=== PATIENT | male | born 1975 | race Caucasian/White ===

== ENCOUNTER 2017-02-25 16:54 | Emergency (ER) | payer MEDICARE, MEDICAID ==
[~2017-02-25] VITALS: Ht 180.3 cm; Wt 98.0 kg
[~2017-02-25 16:54] MED LIST: HYDR50CA PO; LEVO500T8 PO; LITH300T30 PO; PHEN100C PO; PROP20TA PO; QUET400T4 PO
[2017-02-25] MEDS ORDERED: SODIUM CHLORIDE FLUSH 10ML SYR IVF ONE (17:30)
[2017-02-25] MEDS ORDERED: LORazepam 2 MG/ML, 1ML IVPush ONE (17:30)
[2017-02-25 17:38] LABS: ASPARTATE AMINO TRANSFERASE 20 U/L (15-37); BLOOD UREA NITROGEN 27 mg/dL (7-18)
[2017-02-25] MEDS ORDERED: LORazepam 2 MG/ML, 1ML ONE (17:50)
[2017-02-25] MEDS ORDERED: PHENYTOIN 100 MG CAPSULE PO ONE (18:30)
[2017-02-25 18:59] VITALS: BP 103/57
== END 2017-02-25 19:09 | disposition home or self-care (01) ==
LOC: ED 19:03
DX: R56.9 Unspecified convulsions (principal); F17.200 Nicotine dependence, unspecified, uncomplicated; Z91.010 Allergy to peanuts
CPT/HCPCS: 36415; 80053; 80185; 83735; 84100; 85025; 93005; 96374; 99285; J2060

== ENCOUNTER 2017-05-08 15:55 | Emergency (ER) | payer MEDICARE, MEDICAID ==
[~2017-05-08] VITALS: Ht 180.3 cm; Wt 91.8 kg
[2017-05-08 16:37] LABS: DAU SCREEN DISCLAIMER
[2017-05-08 17:10] LABS: HEMATOCRIT 42.5 % (39.2-51.8); HEMOGLOBIN 14.6 g/dL (13.7-18.0); WHITE BLOOD COUNT 9.1 x10^3/uL (3.4-10)
[2017-05-08] MEDS ORDERED: KETOROLAC 30 MG/1 ML ONE (17:20)
[2017-05-08 17:23] LABS: ASPARTATE AMINO TRANSFERASE 29 U/L (15-37); BLOOD UREA NITROGEN 13 mg/dL (7-18)
[2017-05-08] MEDS ORDERED: KETOROLAC 60 MG/2 ML IM ONE (17:30)
[2017-05-08 17:32] LABS: ACETAMINOPHEN < 2 mcg/mL (10-30)
[2017-05-09 08:46] VITALS: BP 138/100
== END 2017-05-09 11:13 | disposition home or self-care (01) ==
LOC: ED 17:08
DX: F32.3 Major depressive disorder, single episode, severe with psychotic features (principal); R45.851 Suicidal ideations; F10.229 Alcohol dependence with intoxication, unspecified; Z86.73 Personal history of transient ischemic attack (TIA), and cerebral infarction without residual deficits
CPT/HCPCS: 36415; 74176; 80053; 80178; 80185; 80186; 80307; 80329; 81003; 83690; 85025; 96372; 99285; J1885; G0479; G0480

== ENCOUNTER 2017-09-26 15:43 | Emergency (ER) | payer MEDICARE, MEDICAID ==
[~2017-09-26] VITALS: Ht 180.3 cm; Wt 85.0 kg
[2017-09-26] MEDS ORDERED: LORazepam 2 MG/ML, 1ML ONE (16:17)
[2017-09-26] MEDS ORDERED: ALPR0.25 PO (16:20)
[2017-09-26] MEDS ORDERED: ZIPR20CA2 PO (16:20)
[2017-09-26] MEDS ORDERED: LORazepam 2 MG/ML, 1ML IVPush ONE (16:30)
[2017-09-26] MEDS ORDERED: THIAMINE 100 MG/ML, 2ML IM ONE (16:30)
[2017-09-26] MEDS ORDERED: DIAZEPAM 10 MG TABLET PO ONE (16:30)
[2017-09-26] MEDS ORDERED: PHENYTOIN SODIUM 1,000 MG in SODIUM CHLORIDE 0.9% 100 ML IV ONE (16:30)
[2017-09-26] MEDS ORDERED: DIAZEPAM 5 MG TABLET ONE (16:39)
[2017-09-26] MEDS ORDERED: THIAMINE 100MG TABLET ONE (16:39)
[2017-09-26 16:42] LABS: BASOPHILS # (AUTO) 0.03 x10^3/uL (0-0.1); BASOPHILS % (AUTO) 1 % (0-1); EOSINOPHILS # (AUTO) 0.23 x10^3/uL (0-0.4); EOSINOPHILS % (AUTO) 5 % (1-7); LYMPHOCYTES # (AUTO) 1.74 x10^3/uL (1-3.4); LYMPHOCYTES % (AUTO) 34 % (22-44); MD NO; MEAN CORPUSCULAR HEMOGLOBIN 31.9 pg (27.5-34.5); MEAN CORPUSCULAR VOLUME 93.7 fL (81-97); MONOCYTES # (AUTO) 0.28 x10^3/uL (0.2-0.8); MONOCYTES % (AUTO) 5 % (2-9); NEUTROPHILS # (AUTO) 2.83 x10^3/uL (1.8-6.8); NEUTROPHILS % (AUTO) 56 % (42-75); PLATELET COUNT 170 x10^3/uL (130-400); RED CELL DISTRIBUTION WIDTH 14.4 % (9.4-14.8)
[2017-09-26 16:56] LABS: ALBUMIN 3.4 g/dL (3.4-5.0); ANION GAP 6 mmol/L (5-15); CALCIUM 8.1 mg/dL (8.5-10.1); CHLORIDE 108 mmol/L (98-107); CREATININE 1.03 mg/dL (0.7-1.3)
[2017-09-26] MEDS ORDERED: FILTER 0.22 MICRON FOR PHENYTOIN IV PRN (17:00)
[2017-09-26] MEDS ORDERED: THIAMINE 100MG TABLET PO ONE (17:00)
[2017-09-26 17:02] VITALS: BP 144/103
== END 2017-09-26 18:34 ==
LOC: ED 18:15
DX: G40.319 Generalized idiopathic epilepsy and epileptic syndromes, intractable, without status epilepticus (principal); F10.220 Alcohol dependence with intoxication, uncomplicated; Z72.89 Other problems related to lifestyle; Z86.73 Personal history of transient ischemic attack (TIA), and cerebral infarction without residual deficits; I25.2 Old myocardial infarction; F17.200 Nicotine dependence, unspecified, uncomplicated
CPT/HCPCS: 36415; 70450; 80048; 80185; 80307; 82040; 85025; 96365; 99285; J1165

== ENCOUNTER 2018-11-24 23:31 | Emergency (ER) | payer MEDICARE, MEDICAID ==
[~2018-11-24] VITALS: Ht 180.3 cm; Wt 87.7 kg
[~2018-11-24 23:31] MED LIST changes: +ALPR0.25 PO; +DIVA500T2 PO; +GABA300C10 PO; +PROP40TA PO; +TRAZ-137 PO; +ZIPR20CA2 PO
--- NOTE | 2018-11-25 00:06 | NUR ---
42 Y/O MALE MACO REM FROM HOME. BYSTANDER AT HOME STATES HE HAD A SEIZURE LASTING APPROX 2 MIN. PT HAS A HX OF SEIZURE AND TAKES MEDICATIONS REGULARLY. EMS REPORT THE PT WAS ALERT AND ORIENTED UPON ARRIVAL AND HAS REMAINED ALERT AND ORIENTED THROUGHTOUT TRANSPORT. HE IS TALKING AND JOKING WITH STAFF UPON ARRIVAL. REPORTS DRINKING A PINT OF VODKA TODAY. HX OF ALCOHOLISM AND LIVER CIRRHOSIS. EMS ESTABLISHED IV, NO MEDS GIVEN. FSBS 125. ALL VITALS STABLE. MONITOR SHOWS NSR WITH NO ECTOPY NOTED. NO ST CHANGES PRESENT. SEIZURE PRECAUTIONS IN PLACE. CALL LIGHT WITHIN REACH. WILL CONTINUE TO MONITOR.
[2018-11-25 00:25] LABS: BASOPHILS # (AUTO) 0.03 x10^3/uL (0-0.1); BASOPHILS % (AUTO) 0 % (0-1); EOSINOPHILS % (AUTO) 3 % (1-7); LYMPHOCYTES # (AUTO) 2.85 x10^3/uL (1-3.4); LYMPHOCYTES % (AUTO) 41 % (22-44); MD NO; MEAN CORPUSCULAR HEMOGLOBIN 30.7 pg (27.5-34.5); MEAN CORPUSCULAR HGB CONC 33.4 g/dL (33.2-36.2); MEAN CORPUSCULAR VOLUME 91.8 fL (81-97); MEAN PLATELET VOLUME 7.6 fL (7.4-10.4); MONOCYTES % (AUTO) 13 % (2-9); NEUTROPHILS # (AUTO) 3.06 x10^3/uL (1.8-6.8); NEUTROPHILS % (AUTO) 44 % (42-75); PLATELET COUNT 186 x10^3/uL (130-400); RED CELL DISTRIBUTION WIDTH 16.5 % (9.4-14.8)
--- NOTE | 2018-11-25 00:27 | NUR ---
WALKED IN PT ROOM TO FIND HIM STANDING NEXT TO THE BED. PT STATES HE NEEDS TO GET SOMETHING TO EAT. PT EDUCATED ON THE NEED TO STAY IN BED SINCE HE HAD A SEIZURE AT HOME. HE WAS RE EDUCATED ON HOW TO USE THE CALL LIGHT WELL. URINAL PROVIDED TO OBTAIN A URINE SAMPLE. AWAITING TESTS AT THIS TIME. WILL CONTINUE TO MONITOR.
--- NOTE | 2018-11-25 00:35 | NUR ---
URINE SAMPLE PROVIDED BY PT. SENT TO LAB
[2018-11-25 00:37] LABS: ALANINE AMINOTRANSFERASE 32 U/L (12-78); ALBUMIN 3.3 g/dL (3.4-5.0); ANION GAP 6 mmol/L (5-15); CALCIUM 8.3 mg/dL (8.5-10.1); CHLORIDE 111 mmol/L (98-107); CREATININE 0.96 mg/dL (0.7-1.3)
[2018-11-25 00:39] LABS: ALKALINE PHOSPHATASE 82 U/L (45-117); BILIRUBIN,TOTAL 0.2 mg/dL (0.2-1.0); TOTAL PROTEIN 8.1 g/dL (6.4-8.2)
[2018-11-25 00:58] LABS: MICROSCOPIC NOT IND
[2018-11-25 01:02] LABS: CULTURE INDICATED? NO
--- NOTE | 2018-11-25 01:03 | NUR ---
PT RESTING ON GURNEY IN NAD. ALL VITALS STABLE. CHART UP FOR RECHECK
[2018-11-25 01:55] VITALS: BP 108/78
--- NOTE | 2018-11-25 01:55 | NUR ---
Break RN: patient discharge with instruction. verbalized understanding.
== END 2018-11-25 01:57 | disposition home or self-care (01) ==
LOC: ED 23:57
DX: G40.409 Other generalized epilepsy and epileptic syndromes, not intractable, without status epilepticus (principal); Z72.9 Problem related to lifestyle, unspecified; F31.9 Bipolar disorder, unspecified; Z86.73 Personal history of transient ischemic attack (TIA), and cerebral infarction without residual deficits; F20.9 Schizophrenia, unspecified; Z86.19 Personal history of other infectious and parasitic diseases; I25.2 Old myocardial infarction
CPT/HCPCS: 36415; 80053; 80164; 81003; 85025; 93005; 99284

== ENCOUNTER 2018-11-26 14:01 | Emergency (ER) | payer MEDICARE, MEDICAID ==
[~2018-11-26] VITALS: Ht 180.3 cm; Wt 100.0 kg
[2018-11-26 14:07] VITALS: BP 120/66
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
--- NOTE | 2018-11-26 15:02 | NUR ---
PT ON PHONE WITH ROOMMATE. SPOKE WITH ROOMMATE WHO SAID THAT HE CAN CALL FOR RIDE WHEN HE GETS DISCHARGED.
[2018-11-26] MEDS ORDERED: THIAMINE 100MG TABLET PO ONE (15:30)
--- NOTE | 2018-11-26 15:31 | NUR ---
FRIEND AT BEDSIDE. PT MOVED TO CHAIR TO TALK TO HIM. TO BE MEDICATED.
[2018-11-26] MEDS ORDERED: THIAMINE 100MG TABLET ONE (15:32)
--- NOTE | 2018-11-26 15:45 | NUR ---
AFTER GIVEN DISCHARGE PAPERS, PT AMBULATED TO DISCHARGE WITHOUT ASSISTANCE. FRIEND WITH HIM. PT A&O.
== END 2018-11-26 15:58 | disposition home or self-care (01) ==
LOC: ED 15:38
DX: F10.129 Alcohol abuse with intoxication, unspecified (principal); I25.2 Old myocardial infarction; F31.9 Bipolar disorder, unspecified; F17.200 Nicotine dependence, unspecified, uncomplicated; Z86.73 Personal history of transient ischemic attack (TIA), and cerebral infarction without residual deficits; Z90.89 Acquired absence of other organs
CPT/HCPCS: 99283

== ENCOUNTER 2018-12-20 16:41 | Inpatient (IN) | payer MEDICARE, MEDICAID ==
[~2018-12-20] VITALS: Ht 177.8 cm; Wt 93.0 kg
[2018-12-20] MEDS ORDERED: MAALOX/HYOSCYAMINE/LIDOCAINE 45 ML BTL ONE (17:12)
[2018-12-20] MEDS ORDERED: MAALOX/HYOSCYAMINE/LIDOCAINE 45 ML BTL PO ONE (17:30)
[2018-12-20] MEDS ORDERED: LIDOCAINE 4% CREAM 5GM TUBE TP ONE (17:30)
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
[2018-12-20 17:34] LABS: BASOPHILS # (AUTO) 0.15 x10^3/uL (0-0.1); BASOPHILS % (AUTO) 2 % (0-1); EOSINOPHILS # (AUTO) 0.49 x10^3/uL (0-0.4); EOSINOPHILS % (AUTO) 7 % (1-7); LYMPHOCYTES # (AUTO) 3.61 x10^3/uL (1-3.4); LYMPHOCYTES % (AUTO) 51 % (22-44); MD NO; MEAN CORPUSCULAR HEMOGLOBIN 31.6 pg (27.5-34.5); MEAN CORPUSCULAR HGB CONC 33.5 g/dL (33.2-36.2); MEAN CORPUSCULAR VOLUME 94.2 fL (81-97); MEAN PLATELET VOLUME 7.6 fL (7.4-10.4); MONOCYTES # (AUTO) 0.42 x10^3/uL (0.2-0.8); MONOCYTES % (AUTO) 6 % (2-9); NEUTROPHILS # (AUTO) 2.41 x10^3/uL (1.8-6.8); NEUTROPHILS % (AUTO) 34 % (42-75); PLATELET COUNT 340 x10^3/uL (130-400); RED BLOOD COUNT 5.04 x10^6/uL (4.38-5.82)
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
--- NOTE | 2018-12-20 17:45 | NUR ---
DR. VERNON AND THIS RN AT BEDSIDE FOR RECTAL EXAM. PT TO GET LIDOCAINE CREAM FOR PAIN.
[2018-12-20 17:47] LABS: ALBUMIN 3.4 g/dL (3.4-5.0); ANION GAP 8 mmol/L (5-15); CALCIUM 8.4 mg/dL (8.5-10.1); CHLORIDE 112 mmol/L (98-107)
[2018-12-20 17:53] LABS: ALANINE AMINOTRANSFERASE 43 U/L (12-78); ALKALINE PHOSPHATASE 93 U/L (45-117); TOTAL PROTEIN 8.7 g/dL (6.4-8.2)
[2018-12-20 17:55] LABS: ACETAMINOPHEN < 2 mcg/mL (10-30); BILIRUBIN,TOTAL < 0.1 mg/dL (0.2-1.0)
--- NOTE | 2018-12-20 18:30 | NUR ---
PT CALM AND COOPERATIVE WITH EX-BOYFRIEND AT BEDSIDE. WAITING FOR LAB RESULTS. PT AWARE OF NEED FOR UA SPECIMEN.
--- NOTE | 2018-12-20 19:45 | NUR ---
EX-BOYFRIEND LEFT AFTER HELPING PT BE REGISTERED. PT PLACED EX-BOYFRIEND PERSON TO NOTIFY ON REGISTRATION FORM. OK PER PT TO HAVE EX-BOYFRIEND BE CONTACTED IN CASE PT IS TRANSFERRED TO ANOTHER FACILITY. PT UPDATED ON POC REGARDING SOBRIETY THEN TELEPSYCH.
--- NOTE | 2018-12-20 20:42 | NUR ---
PT RESTING IN BED IN NAD. PT BEING OBSERVED BY SITTER. PT STILL AWARE OF NEED FOR UA SPECIMEN.
--- NOTE | 2018-12-20 22:02 | NUR ---
REPORT TO JAGDEEP Julien RN.
--- NOTE | 2018-12-20 22:36 | NUR ---
Note crystal in ED - 12/20/18 at 2353 by CHRISTOPHER PT PACING AROUND ROOM, TRYING TO RUN OUT OF ROOM. SITTER AT DOORWAY AND PT BACK INTO ROOM. PT MEDICATED FOR ANXIETY AND ASKED TO TRY TO RELAX. PT EASILY REDIRECTED AND RESTING IN BED AT THIS TIME.
--- NOTE | 2018-12-21 00:12 | NUR ---
PT SLEEPING ON RIGHT SIDE ON [facility], VSS AND SITTER AT DOORWAY. WILL CONT TO MONITOR.
--- NOTE | 2018-12-21 01:31 | NUR ---
PT AWAKE AND STATES THAT HE DOES NOT WANT TO HARM HIMSELF IN ANY WAY AND JUST WANTS TO GO TO REHAB AGAIN. ERMD DIGNA AWARE. BRETHALYZER 0.058
[2018-12-21] MEDS ORDERED: ONDANSETRON 2MG/ML, 2ML ONE (01:49)
--- NOTE | 2018-12-21 02:02 | NUR ---
TELEPSYCH EVAL INITIATED.
[2018-12-21 02:16] LABS: AMPHETAMINE SCREEN, URINE Negative (Negative); BARBITURATE SCREEN, URINE Negative (Negative); BENZODIAZEPINE SCREEN, URINE Negative (Negative); CANNABINOID SCREEN, URINE Negative (Negative); COCAINE SCREEN, URINE Negative (Negative); METHADONE SCREEN, URINE Negative (Negative); OPIATE SCREEN, URINE Negative (Negative)
--- NOTE | 2018-12-21 03:46 | NUR ---
PT RESTING WITH EYES CLOSED AWAITING TELEPSYCH CONSULT. SITTER AT DOORWAY AND WILL CONT TO MONITOR.
--- NOTE | 2018-12-21 04:50 | NUR ---
PT SLEEPING ON [place], SITTER AT DOORWAY. WILL CONT TO MONITOR.
--- NOTE | 2018-12-21 05:10 | NUR ---
Pt report from sascha saenz. This rn to assume care of pt. No immediate needs from pt. Roller doors in place. Sitter in hallway. Awaiting telepsych consult.
--- NOTE | 2018-12-21 05:46 | NUR ---
Soc updated on pt.
--- NOTE | 2018-12-21 06:16 | NUR ---
Pt to be placed on hold. Awaiting adm orders. Hospital bed ordered at this time.
--- NOTE | 2018-12-21 06:58 | NUR ---
Pt report to kathryn saenz.
--- NOTE | 2018-12-21 07:00 | NUR ---
REPORT RECEIVED, CARE ASSUMED.
--- NOTE | 2018-12-21 08:15 | NUR ---
PT AWAKE. PT WITH C/O "FEELING SHAKY" AND NAUSEATED. PT COOPERATIVE WITH CARE. PT PLACED ON BRAZER INDUCTION. PT DENIES SI AT THIS TIME. AWAITING FURTHER DISPOSITION.
[2018-12-21] MEDS ORDERED: THIAMINE 200 MG in DEXTROSE 5% 50 ML IVPB ONE (08:30)
[2018-12-21] MEDS ORDERED: LORazepam 0.5MG TABLET PO PRN (08:30)
[2018-12-21] MEDS ORDERED: LABETALOL 5MG/ML, 20ML IVPush PRN (08:30)
[2018-12-21] MEDS ORDERED: LORazepam 2 MG/ML, 1ML IV PRN ×4 (08:30)
[2018-12-21] MEDS ORDERED: ACETAMINOPHEN 325 MG TABLET PO PRN (08:30)
[2018-12-21] MEDS ORDERED: LORazepam 1MG TABLET PO PRN ×2 (08:30)
[2018-12-21] MEDS ORDERED: ONDANSETRON 2MG/ML, 2ML IVPush PRN (08:30)
--- NOTE | 2018-12-21 08:30 | NUR ---
DISCUSSED WITH PAUL YBARRA PT WITH C/O NAUSEA AND FEELING "SHAKY" AWAITING FURTHER ORDERS.
[2018-12-21] MEDS ORDERED: PANTOPRAZOLE 40 MG IV IVPush SCH (09:00)
[2018-12-21] MEDS ORDERED: NITROGLYCERIN 0.4 MG/SPRAY SL PRN (09:00)
[2018-12-21] MEDS ORDERED: MAALOX/HYOSCYAMINE/LIDOCAINE 45 ML BTL PO PRN (09:00)
[2018-12-21] MEDS ORDERED: NITROGLYCERIN 0.4 MG BOTTLE (25 TABS) SL PRN (09:00)
[2018-12-21 09:05] LABS: TROPONIN I < 0.015 ng/mL (0.000-0.045)
[2018-12-21] MEDS ORDERED: ONDANSETRON ODT 4 MG ONE (09:05)
[2018-12-21] MEDS ORDERED: PANTOPRAZOLE 40 MG IV ONE (09:05)
[2018-12-21] MEDS ORDERED: ENOXAPARIN 40 MG/0.4 ML ONE (09:05)
[2018-12-21] MEDS ORDERED: LORazepam 2 MG/ML, 1ML ONE ×2 (09:06→13:03)
--- NOTE | 2018-12-21 09:08 | NUR ---
MEDICATIONS REQUESTED FROM PHARMACY
[2018-12-21] MEDS: ONDANSETRON ODT 4 MG PO PRN (09:12)
[2018-12-21] MEDS: ENOXAPARIN 40 MG/0.4 ML SQ SCH (09:14)
[2018-12-21] MEDS: PROPRANOLOL 10 MG TABLET PO SCH (09:56)
--- NOTE | 2018-12-21 09:58 | NUR ---
Pt in stable condition, watching TV and denies needs. Pt has been medicated with Zofran and Librium, as well at Ativan per [facility]. Cooperative with care, sinus rhythm per monitor. Pt provided with snack, tolerating intake. Sitter at door.
[2018-12-21] MEDS: POTASSIUM CHLORIDE 20 MEQ, MAGNESIUM SULFATE 1 GM, THIAMINE 200 MG, FOLIC ACID 1 MG, MV... IV SCH (10:45)
[2018-12-21] MEDS ORDERED: CHLORDIAZEPOXIDE 10 MG CAPSULE PO SCH (11:00)
--- NOTE | 2018-12-21 11:58 | NUR ---
REPORT TO CAMI MICHAELS. POC DISCUSSED.
[2018-12-21 14:23] VITALS: BP 159/92
[2018-12-21 15:10] LABS: TROPONIN I < 0.015 ng/mL (0.000-0.045)
[2018-12-21] MEDS: PANTOPRAZOLE 20MG TABLET PO SCH (16:14)
[2018-12-21 19:46] VITALS: BP 153/100
[2018-12-21] MEDS ORDERED: LABETALOL 5 MG/ML SYRINGE IVPush PRN (20:00)
[2018-12-21 21:28] LABS: TROPONIN I < 0.015 ng/mL (0.000-0.045)
[2018-12-22 02:00] VITALS: BP 132/86
[2018-12-22] MEDS: PROPRANOLOL 10 MG TABLET PO SCH (05:39)
[2018-12-22] MEDS: PANTOPRAZOLE 20MG TABLET PO SCH ×2 (05:39→17:00)
[2018-12-22 07:05] VITALS: BP 151/86
[2018-12-22] MEDS: ONDANSETRON ODT 4 MG PO PRN (07:26)
[2018-12-22] MEDS: ENOXAPARIN 40 MG/0.4 ML SQ SCH (07:27)
[2018-12-22] MEDS: POTASSIUM CHLORIDE 20 MEQ, MAGNESIUM SULFATE 1 GM, THIAMINE 200 MG, FOLIC ACID 1 MG, MV... IV SCH (08:59)
[2018-12-22] MEDS ORDERED: LISINOPRIL 5 MG TABLET PO SCH (14:30)
[2018-12-22 15:59] VITALS: BP 126/89
[2018-12-22] MEDS ORDERED: FOLI-17 PO (16:15)
[2018-12-22] MEDS ORDERED: PANT20TA3 PO (16:15)
[2018-12-22] MEDS ORDERED: THIA100T67 PO (16:15)
[2018-12-23] MEDS ORDERED: THIAMINE 100MG TABLET PO SCH (09:00)
[2018-12-23] MEDS ORDERED: FOLIC ACID 1 MG TABLET PO SCH (09:00)
[2018-12-23] MEDS ORDERED: MULTIVITAMIN 1 TABLET PO SCH (09:00)
== END 2018-12-22 18:18 | DRG 392 ==
LOC: ED 18:55 → EDIP 12-21 06:39 → 4WST 12-21 13:35
PROVIDERS: ADMIT Internal Medicine; ATTEND Internal Medicine
DX: K29.20 Alcoholic gastritis without bleeding (principal); R45.851 Suicidal ideations; B15.9 Hepatitis A without hepatic coma; F10.220 Alcohol dependence with intoxication, uncomplicated; B18.2 Chronic viral hepatitis C; K70.30 Alcoholic cirrhosis of liver without ascites; F41.8 Other specified anxiety disorders; R07.89 Other chest pain; R25.1 Tremor, unspecified; R61 Generalized hyperhidrosis; F17.200 Nicotine dependence, unspecified, uncomplicated; F19.90 Other psychoactive substance use, unspecified, uncomplicated; F25.9 Schizoaffective disorder, unspecified; R56.9 Unspecified convulsions; F31.9 Bipolar disorder, unspecified; I10 Essential (primary) hypertension; I25.2 Old myocardial infarction; Z56.0 Unemployment, unspecified; Z90.49 Acquired absence of other specified parts of digestive tract; Z87.01 Personal history of pneumonia (recurrent); Z86.73 Personal history of transient ischemic attack (TIA), and cerebral infarction without residual deficits; Z88.6 Allergy status to analgesic agent; Z91.010 Allergy to peanuts; Z91.013 Allergy to seafood
CPT/HCPCS: 36415; 71045; 80053; 80307; 83690; 83735; 84100; 84484; 85025; 93005; 96365; 96375; G0378; J1650; J3411; J3475; J3480; Q0162; C9113; J2060; J7030

== ENCOUNTER 2018-12-22 16:55 | Inpatient (IN) | payer MEDICARE, MEDICAID ==
[~2018-12-22] VITALS: Ht 180.3 cm; Wt 91.9 kg
[~2018-12-22 16:55] MED LIST changes: +FOLI-17 PO; +PANT20TA3 PO; +THIA100T67 PO
[2018-12-22] MEDS ORDERED: POLYETHYLENE GLYCOL 17 GM PACKET PO PRN (18:00)
[2018-12-22] MEDS ORDERED: BISACODYL 10 MG SUPP PR PRN (18:00)
[2018-12-22] MEDS ORDERED: ONDANSETRON ODT 4 MG PO PRN (18:00)
[2018-12-22] MEDS ORDERED: DOCUSATE 100 MG CAPSULE PO PRN (18:00)
[2018-12-22] MEDS ORDERED: TRAZODONE 100MG TABLET PO PRN (19:00)
[2018-12-22] MEDS: PROPRANOLOL 40 MG TABLET PO SCH (19:00)
[2018-12-22 19:28] VITALS: BP 129/88
[2018-12-22] MEDS: DIVALPROEX 500 MG TABLET.DR PO SCH (20:09)
[2018-12-22] MEDS: GABAPENTIN 100 MG CAPSULE PO SCH (20:09)
[2018-12-22] MEDS ORDERED: QUETIAPINE 100MG TABLET PO SCH (21:00)
[2018-12-22 23:18] VITALS: BP 136/89
[2018-12-23 05:21] LABS: ANION GAP 9 mmol/L (5-15); CALCIUM 8.9 mg/dL (8.5-10.1); CHLORIDE 103 mmol/L (98-107); CHOLESTEROL, TOTAL 195 mg/dL (140-239); TRIGLYCERIDES 188 mg/dL (50-200); VLDL CHOLESTEROL 38 mg/dL (0-25)
[2018-12-23 05:47] LABS: FREE T4 (FREE THYROXINE) 1.11 ng/dL (0.76-1.46)
[2018-12-23] MEDS: PANTOPRAZOLE 20MG TABLET PO SCH (06:10)
[2018-12-23] MEDS: PROPRANOLOL 40 MG TABLET PO SCH (06:10)
[2018-12-23 06:24] LABS: CHOL/HDL RATIO 4.3; HDL CHOL % 23 % (26-37); HDL CHOLESTEROL (DIRECT) 45 mg/dL (40-60); LDL CHOLESTEROL,CALCULATED 112 mg/dL (54-169); LDL/HDL RATIO 2.5 (0.5-3.0)
[2018-12-23 07:10] VITALS: BP 75/36
[2018-12-23 07:25] VITALS: BP 82/44
[2018-12-23] MEDS ORDERED: SODIUM CHLORIDE 0.9%, 500ML IVBOLUS ONE (08:00)
[2018-12-23] MEDS: THIAMINE 100MG TABLET PO SCH (09:01)
[2018-12-23] MEDS: GABAPENTIN 100 MG CAPSULE PO SCH ×3 (09:01→20:44)
[2018-12-23] MEDS: FOLIC ACID 1 MG TABLET PO SCH (09:01)
[2018-12-23 09:25] VITALS: BP 86/56
[2018-12-23 10:23] VITALS: BP 94/60
[2018-12-23] MEDS ORDERED: TRAZODONE 100MG TABLET PO PRN (11:30)
[2018-12-23] MEDS ORDERED: SODIUM CHLORIDE 0.9% 1,000 ML IV SCH (11:30)
[2018-12-23 11:51] VITALS: BP 94/62
[2018-12-23] MEDS: ACETAMINOPHEN 325 MG TABLET PO PRN (12:58)
[2018-12-23 16:30] LABS: ALBUMIN 3.1 g/dL (3.4-5.0); ANION GAP 6 mmol/L (5-15); CALCIUM 8.8 mg/dL (8.5-10.1); CHLORIDE 107 mmol/L (98-107)
[2018-12-23 16:31] LABS: CREATININE 1.39 mg/dL (0.7-1.3)
[2018-12-23] MEDS: PROPRANOLOL 20 MG TABLET PO SCH (18:00)
[2018-12-23 20:17] VITALS: BP 118/81
[2018-12-23] MEDS: DIVALPROEX 500 MG TABLET.DR PO SCH (20:44)
[2018-12-23] MEDS: QUETIAPINE 100MG TABLET PO SCH (20:44)
[2018-12-24] VITALS (7 sets, daily range): BP systolic 100–155; BP diastolic 67–89
[2018-12-24] MEDS: PROPRANOLOL 20 MG TABLET PO SCH ×2 (06:00→17:10)
[2018-12-24] MEDS: PANTOPRAZOLE 20MG TABLET PO SCH (06:02)
[2018-12-24] MEDS: FOLIC ACID 1 MG TABLET PO SCH (08:33)
[2018-12-24] MEDS: THIAMINE 100MG TABLET PO SCH (08:33)
[2018-12-24] MEDS: GABAPENTIN 100 MG CAPSULE PO SCH ×3 (08:33→20:00)
[2018-12-24 15:27] LABS: MICROSCOPIC NOT IND
[2018-12-24 15:32] LABS: CULTURE INDICATED? NO
[2018-12-24] MEDS: DIVALPROEX 500 MG TABLET.DR PO SCH (20:00)
[2018-12-24] MEDS: QUETIAPINE 100MG TABLET PO SCH (20:00)
[2018-12-25] MEDS: PANTOPRAZOLE 20MG TABLET PO SCH (05:51)
[2018-12-25] MEDS: PROPRANOLOL 20 MG TABLET PO SCH ×2 (05:52→17:42)
[2018-12-25 06:39] LABS: CHLORIDE 107 mmol/L (98-107)
[2018-12-25 06:45] LABS: ALBUMIN 3.2 g/dL (3.4-5.0); ANION GAP 6 mmol/L (5-15); CALCIUM 8.8 mg/dL (8.5-10.1); CREATININE 0.87 mg/dL (0.7-1.3)
[2018-12-25 07:36] VITALS: BP 114/78
[2018-12-25] MEDS: THIAMINE 100MG TABLET PO SCH (09:18)
[2018-12-25] MEDS: GABAPENTIN 100 MG CAPSULE PO SCH ×3 (09:18→20:00)
[2018-12-25] MEDS: FOLIC ACID 1 MG TABLET PO SCH (09:18)
[2018-12-25] MEDS: ACETAMINOPHEN 325 MG TABLET PO PRN (16:09)
[2018-12-25 16:10] VITALS: BP 131/90
[2018-12-25 19:15] VITALS: BP 133/90
[2018-12-25] MEDS: DIVALPROEX 500 MG TABLET.DR PO SCH (20:00)
[2018-12-25] MEDS: QUETIAPINE 100MG TABLET PO SCH (20:01)
[2018-12-26] MEDS: PANTOPRAZOLE 20MG TABLET PO SCH (05:41)
[2018-12-26] MEDS: PROPRANOLOL 20 MG TABLET PO SCH ×2 (05:41→17:48)
[2018-12-26 07:10] VITALS: BP 130/85
[2018-12-26] MEDS: THIAMINE 100MG TABLET PO SCH (09:18)
[2018-12-26] MEDS: FOLIC ACID 1 MG TABLET PO SCH (09:18)
[2018-12-26] MEDS: GABAPENTIN 100 MG CAPSULE PO SCH ×3 (09:18→20:02)
[2018-12-26 17:47] VITALS: BP 130/86
[2018-12-26 19:21] VITALS: BP 127/93
[2018-12-26] MEDS: DIVALPROEX 500 MG TABLET.DR PO SCH (20:02)
[2018-12-26] MEDS: QUETIAPINE 100MG TABLET PO SCH (20:02)
[2018-12-27] MEDS: PROPRANOLOL 20 MG TABLET PO SCH (05:13)
[2018-12-27] MEDS: PANTOPRAZOLE 20MG TABLET PO SCH (05:13)
[2018-12-27 06:23] LABS: BASOPHILS # (AUTO) 0.03 x10^3/uL (0-0.1); BASOPHILS % (AUTO) 1 % (0-1); EOSINOPHILS # (AUTO) 0.43 x10^3/uL (0-0.4); EOSINOPHILS % (AUTO) 7 % (1-7); LYMPHOCYTES % (AUTO) 48 % (22-44); MD NO; MEAN CORPUSCULAR HEMOGLOBIN 32.2 pg (27.5-34.5); MEAN CORPUSCULAR HGB CONC 33.9 g/dL (33.2-36.2); MEAN CORPUSCULAR VOLUME 94.9 fL (81-97); MEAN PLATELET VOLUME 8.2 fL (7.4-10.4); MONOCYTES # (AUTO) 0.55 x10^3/uL (0.2-0.8); MONOCYTES % (AUTO) 9 % (2-9); NEUTROPHILS # (AUTO) 2.34 x10^3/uL (1.8-6.8); NEUTROPHILS % (AUTO) 36 % (42-75); PLATELET COUNT 204 x10^3/uL (130-400); RED CELL DISTRIBUTION WIDTH 14.6 % (9.4-14.8)
[2018-12-27 06:35] LABS: ALANINE AMINOTRANSFERASE 24 U/L (12-78); ALBUMIN 3.2 g/dL (3.4-5.0); ANION GAP 6 mmol/L (5-15); CALCIUM 8.8 mg/dL (8.5-10.1); CHLORIDE 109 mmol/L (98-107); CREATININE 1.03 mg/dL (0.7-1.3)
[2018-12-27 06:37] LABS: ALKALINE PHOSPHATASE 68 U/L (45-117); BILIRUBIN,TOTAL 0.3 mg/dL (0.2-1.0); TOTAL PROTEIN 7.6 g/dL (6.4-8.2)
[2018-12-27 07:00] VITALS: BP 125/88
[2018-12-27] MEDS: GABAPENTIN 100 MG CAPSULE PO SCH (08:51)
[2018-12-27] MEDS: THIAMINE 100MG TABLET PO SCH (08:51)
[2018-12-27] MEDS: FOLIC ACID 1 MG TABLET PO SCH (08:51)
== END 2018-12-27 11:45 | disposition home or self-care (01) | DRG 885 ==
LOC: 3E 18:17
PROVIDERS: ADMIT Psychiatry & Neurology Psychosomatic Medicine; ATTEND Psychiatry & Neurology Psychosomatic Medicine
DX: F25.0 Schizoaffective disorder, bipolar type (principal); N17.9 Acute kidney failure, unspecified; F10.20 Alcohol dependence, uncomplicated; F41.9 Anxiety disorder, unspecified; G89.29 Other chronic pain; F17.210 Nicotine dependence, cigarettes, uncomplicated; I10 Essential (primary) hypertension; K21.9 Gastro-esophageal reflux disease without esophagitis; F15.10 Other stimulant abuse, uncomplicated; Y90.9 Presence of alcohol in blood, level not specified; K74.60 Unspecified cirrhosis of liver; Z79.899 Other long term (current) drug therapy; Z88.5 Allergy status to narcotic agent; Z91.010 Allergy to peanuts; Z83.3 Family history of diabetes mellitus; Z88.8 Allergy status to other drugs, medicaments and biological substances; Z91.013 Allergy to seafood; Z90.49 Acquired absence of other specified parts of digestive tract
CPT/HCPCS: 36415; 80048; 80053; 80061; 80069; 81003; 82607; 84439; 84443; 85025; 86592; 86780; 92522-GN; J7030; J7040

== ENCOUNTER 2018-12-23 17:30 | Emergency (ER) | payer MEDICARE, MEDICAID ==
[~2018-12-23] VITALS: Ht 180.3 cm; Wt 93.0 kg
[2018-12-23] MEDS ORDERED: LIDOCAINE-MPF 1%, 5ML ONE (17:50)
[2018-12-23] MEDS ORDERED: L.E.T SOLUTION TP ONE ×2 (17:50→18:00)
[2018-12-23] MEDS ORDERED: PHENYLEPHRINE 10 MG/ML ONE (17:50)
[2018-12-23] MEDS ORDERED: PHENYLEPHRINE 10 MG/ML IC ONE (18:00)
[2018-12-23] MEDS ORDERED: PLEASE ENTER HEIGHT AND WEIGHT MC SCH (18:00)
[2018-12-23] MEDS ORDERED: LIDOCAINE 1%, 10ML INFIL ONE (18:00)
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
--- NOTE | 2018-12-23 19:10 | NUR ---
REPORT RECEIVED FROM WIN/CARLIN ALMANZA.
--- NOTE | 2018-12-23 19:14 | NUR ---
REPORT TO GIOVANI ALMANZA
--- NOTE | 2018-12-23 19:44 | NUR ---
REPORT GIVEN TO HOOD ALMANZA. ALL QUESTIONS ANSWERED.
[2018-12-23 19:46] VITALS: BP 133/72
== END 2018-12-23 20:00 ==
LOC: ED 17:35
DX: N48.33 Priapism, drug-induced (principal); I25.2 Old myocardial infarction; I10 Essential (primary) hypertension; F20.9 Schizophrenia, unspecified; F31.9 Bipolar disorder, unspecified; Z86.73 Personal history of transient ischemic attack (TIA), and cerebral infarction without residual deficits; Z90.49 Acquired absence of other specified parts of digestive tract
CPT/HCPCS: 99285

== ENCOUNTER 2019-01-12 23:57 | Emergency (ER) | payer MEDICARE, MEDICAID ==
[~2019-01-12] VITALS: Ht 175.3 cm; Wt 100.0 kg
[2019-01-13 00:05] VITALS: BP 141/97
== END 2019-01-13 01:19 | disposition home or self-care (01) ==
LOC: ED 01-13 00:10
DX: F10.120 Alcohol abuse with intoxication, uncomplicated (principal); I10 Essential (primary) hypertension; F20.9 Schizophrenia, unspecified; I25.2 Old myocardial infarction; F31.9 Bipolar disorder, unspecified; Z86.73 Personal history of transient ischemic attack (TIA), and cerebral infarction without residual deficits; Z90.89 Acquired absence of other organs
CPT/HCPCS: 99283

== ENCOUNTER 2019-07-14 07:19 | Emergency (ER) | payer MEDICAID, MEDICARE ==
[~2019-07-14] VITALS: Ht 180.3 cm; Wt 96.3 kg
[2019-07-14 07:21] VITALS: BP 135/98
--- NOTE | 2019-07-14 07:49 | NUR ---
FIRST CONTACT WITH PT. PT C/O LT ANKLE PAIN AFTER FALL LAST WK, HYPEREXTENDED, +LIMP, +DP PULSE/SWELLING. PT'S AOX4. RESPS EVEN AND UNLABORED. PA AT BEDSIDE TO EVALUATE AT THIS TIME.
[2019-07-14] MEDS ORDERED: OXYcodone 5 MG/5 ML ORAL.SOL UDC ONE (07:53)
[2019-07-14] MEDS ORDERED: OXYcodone 5 MG/5 ML ORAL.SOL UDC PO ONE (08:00)
--- NOTE | 2019-07-14 08:03 | NUR ---
PT MEDICATED PER EMAR FOR PAIN. PT TOLERATED WELL.
--- NOTE | 2019-07-14 08:48 | NUR ---
EMT AT BEDSIDE TO APPLY SPLINT AT THIS TIME.
--- NOTE | 2019-07-14 08:56 | NUR ---
Patient given discharge instructions and they have confirmed that they understand the instructions. Patient ambulatory with steady gait.
== END 2019-07-14 08:57 | disposition home or self-care (01) ==
LOC: ED 08:07
DX: S93.492A Sprain of other ligament of left ankle, initial encounter (principal); I25.2 Old myocardial infarction; I10 Essential (primary) hypertension; Z86.73 Personal history of transient ischemic attack (TIA), and cerebral infarction without residual deficits; X58.XXXA Exposure to other specified factors, initial encounter; Y93.89 Activity, other specified; Y92.098 Other place in other non-institutional residence as the place of occurrence of the external cause; Y99.8 Other external cause status
CPT/HCPCS: 99283

== ENCOUNTER 2020-01-04 15:54 | Emergency (ER) | payer MEDICARE, MEDICAID ==
[~2020-01-04] VITALS: Ht 180.3 cm; Wt 97.7 kg
[~2020-01-04 15:54] MED LIST changes: -TRAZ-137 PO; +TRAZ-175 PO
[2020-01-04 16:10] VITALS: BP 138/91
--- NOTE | 2020-01-04 16:31 | NUR ---
PT TO XRAY
--- NOTE | 2020-01-04 16:47 | NUR ---
PT YELLING INTO HALLWAY, RN ENTERED ROOM AND PT MAKING INNAPROPRIATE SEXUAL GESURES. PT STATES HE URINATED ON HIMSELF AND NEEDS RN TO CLEAN HIM UP. THIS RN ESCORTED BY MALE BENCH SHEAR OPERATOR DEMOND TO HELP, PT DID NOT URINATE ON HIMSELF PER DEMOND AND DID NOT NEED CLEANED UP. PT ON MONITOR WITH CALL LIGHT WITHIN REACH. PTS SISTER NOTIFIED HE IS HERE PER REQUEST.
== END 2020-01-04 17:48 | disposition home or self-care (01) ==
LOC: ED 16:47
DX: S93.491A Sprain of other ligament of right ankle, initial encounter (principal); S90.31XA Contusion of right foot, initial encounter; I10 Essential (primary) hypertension; F20.9 Schizophrenia, unspecified; I25.2 Old myocardial infarction; Z86.73 Personal history of transient ischemic attack (TIA), and cerebral infarction without residual deficits; Z90.89 Acquired absence of other organs; Z88.6 Allergy status to analgesic agent; X50.0XXA Overexertion from strenuous movement or load, initial encounter; Y93.89 Activity, other specified; Y92.410 Unspecified street and highway as the place of occurrence of the external cause; Y99.8 Other external cause status
CPT/HCPCS: 72050; 99284

== ENCOUNTER 2020-01-08 09:31 | Emergency (ER) | payer MEDICARE, MEDICAID ==
[~2020-01-08] VITALS: Ht 180.3 cm; Wt 89.3 kg
--- NOTE | 2020-01-08 09:48 | NUR ---
PT AMBULATORY TO ROOM 14 W/ C/O WOUNDS TO CHIN AND INSIDE LIPS STARTED 3 DAYS AGO. PT DENIES HX IMMUNOCOMPRIMISED. [facility] [place] Ana.
[2020-01-08 09:51] VITALS: BP 144/93
== END 2020-01-08 10:27 | disposition home or self-care (01) ==
LOC: ED 10:19
DX: L01.01 Non-bullous impetigo (principal)
CPT/HCPCS: 99283

== ENCOUNTER 2020-01-30 14:40 | Emergency (ER) | payer MEDICARE, MEDICAID ==
[~2020-01-30] VITALS: Ht 172.7 cm; Wt 86.0 kg
[2020-01-30 15:01] VITALS: BP 124/82
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
--- NOTE | 2020-01-30 15:09 | NUR ---
PER EMS, PT HAS ETOH ON BOARD. REPORT TO ALVAREZ ALMANZA, PLAN OF CARE DISCUSSED
--- NOTE | 2020-01-30 15:15 | NUR ---
REPORT FROM SELENE ALMANZA. MARISEL AT [facility].
[2020-01-30 15:44] LABS: BASOPHILS # (AUTO) 0.02 x10^3/uL (0-0.1); BASOPHILS % (AUTO) 0 % (0-1); EOSINOPHILS # (AUTO) 0.29 x10^3/uL (0-0.4); EOSINOPHILS % (AUTO) 3 % (1-7); LYMPHOCYTES # (AUTO) 3.79 x10^3/uL (1-3.4); LYMPHOCYTES % (AUTO) 41 % (22-44); MD NO; MEAN CORPUSCULAR HEMOGLOBIN 32.1 pg (27.5-34.5); MEAN CORPUSCULAR HGB CONC 33.5 g/dL (33.2-36.2); MEAN CORPUSCULAR VOLUME 95.6 fL (81-97); MEAN PLATELET VOLUME 8.3 fL (7.4-10.4); MONOCYTES # (AUTO) 0.58 x10^3/uL (0.2-0.8); MONOCYTES % (AUTO) 6 % (2-9); NEUTROPHILS # (AUTO) 4.55 x10^3/uL (1.8-6.8); NEUTROPHILS % (AUTO) 49 % (42-75); PLATELET COUNT 251 x10^3/uL (130-400); RED BLOOD COUNT 4.81 x10^6/uL (4.38-5.82); RED CELL DISTRIBUTION WIDTH 15.3 % (9.4-14.8)
[2020-01-30 15:56] LABS: ALANINE AMINOTRANSFERASE 54 U/L (12-78); ALBUMIN 3.4 g/dL (3.4-5.0); ANION GAP 4 mmol/L (5-15); CALCIUM 8.1 mg/dL (8.5-10.1); CHLORIDE 115 mmol/L (98-107); CREATININE 0.72 mg/dL (0.7-1.3)
[2020-01-30 15:58] LABS: ALKALINE PHOSPHATASE 89 U/L (45-117); BILIRUBIN,TOTAL 0.3 mg/dL (0.2-1.0); TOTAL PROTEIN 7.3 g/dL (6.4-8.2)
[2020-01-30 16:16] LABS: SALICYLATE LEVEL < 1.7 mg/dL (2.8-20.0)
--- NOTE | 2020-01-30 16:17 | NUR ---
PT SLEEPING, VSS, NAD. SITTER AT DOORWAY.
--- NOTE | 2020-01-30 18:17 | NUR ---
URINE COLLECTED/SENT TO LAB. PT STATING HE'S HUNGRY. ALSO ADMITS TO ETOH AND "ACTING STUPID". PT'S QUESTIONS ANSWERED, COOPERATIVE WITH CARE. AWAITING ORDERED MEAL TRAY.
[2020-01-30 18:43] LABS: AMPHETAMINE SCREEN, URINE Negative (Negative); BARBITURATE SCREEN, URINE Negative (Negative); BENZODIAZEPINE SCREEN, URINE Positive (Negative); CANNABINOID SCREEN, URINE Negative (Negative); COCAINE SCREEN, URINE Negative (Negative); METHADONE SCREEN, URINE Negative (Negative); OPIATE SCREEN, URINE Negative (Negative)
--- NOTE | 2020-01-30 19:14 | NUR ---
LIGHTS DIMMED PER PT REQUEST. PT RESTING, COOPERATIVE WITH CARE.
--- NOTE | 2020-01-30 19:51 | NUR ---
PT REBREATHALYZED 0.294. PT ABLE TO ANSWER QUESTIONS ABOUT HOME MEDS. MED REC COMPLETED. PULSE OX REPLACED, VSS.
--- NOTE | 2020-01-30 19:55 | NUR ---
CRACKERS, PUDDING, APPLESAUCE AND WATER PROVIDED. PT COOPERATIVE WITH CARE, SLEEPING INTERMITTENTLY. SITTER AT DOORWAY.
--- NOTE | 2020-01-30 21:01 | NUR ---
REPORT TO LOLIS RN, TRANSFER OF CARE AT THIS TIME.
--- NOTE | 2020-01-30 21:06 | NUR ---
REPORT FROM MARGARITA ALMANZA.
--- NOTE | 2020-01-30 22:28 | NUR ---
PT AWAKE, PROVIDED SNACKS. PT DENIES CURRENT SI. SAFETY ROOM PRECAUTIONS IN PLACE. SITTER AT DOORWAY FOR SAFETY.
--- NOTE | 2020-01-31 01:12 | NUR ---
AWAKE WATCHING TV. PROVIDED WATER. SAFETY ROOM PRECAUTIONS IN PLACE. SITTER MONITORING FOR SAFETY.
--- NOTE | 2020-01-31 03:50 | NUR ---
MT: PACKET FAXED TO [facility], [facility], [facility], AND [facility].
--- NOTE | 2020-01-31 04:11 | NUR ---
SLEEPING IN NAD. SITTER MONITORING AT DOORWAY.
--- NOTE | 2020-01-31 06:56 | NUR ---
REPORT GIVEN TO LAURYN ALMANZA.
--- NOTE | 2020-01-31 07:10 | NUR ---
TASK RN: REPORT GIVEN TO CAMI GRAY AT [facility] PT TO BE SENT BY EMS TO [facility] AT 0800.
--- NOTE | 2020-01-31 08:52 | NUR ---
PT RESTING ON HOSPITAL BED AT THIS TIME, PT GIVEN BREAKFAST TRAY. NO NEEDS EXPRESSED AT THIS TIME. SI PRECAUTIONS OBSERVED
--- NOTE | 2020-01-31 09:00 | NUR ---
REPORT TO CARLOS ALMANZA
[2020-01-31] MEDS ORDERED: METF500T17 PO (10:15)
[2020-01-31] MEDS ORDERED: DIVA-59 PO (10:18)
[2020-01-31] MEDS ORDERED: GABA100C PO (10:18)
[2020-01-31] MEDS ORDERED: PROP20TA PO (10:18)
[2020-01-31] MEDS ORDERED: QUET300T PO (10:18)
== END 2020-01-31 09:05 ==
LOC: ED 18:16
DX: F25.9 Schizoaffective disorder, unspecified (principal); F10.129 Alcohol abuse with intoxication, unspecified; I10 Essential (primary) hypertension; Y90.9 Presence of alcohol in blood, level not specified
CPT/HCPCS: 36415; 80053; 80307; 85025; 99285

== ENCOUNTER 2020-01-31 08:36 | Inpatient (IN) | payer MEDICARE, MEDICAID ==
[~2020-01-31] VITALS: Ht 180.3 cm; Wt 90.2 kg
[2020-01-31] MEDS ORDERED: BISACODYL 10 MG SUPP PR PRN (09:00)
[2020-01-31] MEDS ORDERED: DOCUSATE 100 MG CAPSULE PO PRN (09:00)
[2020-01-31] MEDS ORDERED: POLYETHYLENE GLYCOL 17 GM PACKET PO PRN (09:00)
[2020-01-31] MEDS ORDERED: ACETAMINOPHEN 325 MG TABLET PO PRN (09:00)
[2020-01-31] MEDS ORDERED: LORazepam 1MG TABLET ONE (09:46)
[2020-01-31] MEDS ORDERED: PROPRANOLOL 40 MG TABLET ONE (09:46)
[2020-01-31] MEDS: LORazepam 1MG TABLET PO SCH ×2 (09:53→14:23)
[2020-01-31] MEDS ORDERED: LORazepam 1MG TABLET PO SCH (10:00)
[2020-01-31] MEDS ORDERED: PROPRANOLOL 40 MG TABLET PO SCH (10:00)
[2020-01-31 10:01] VITALS: BP 155/104
[2020-01-31] MEDS ORDERED: METF500T17 PO (10:15)
[2020-01-31] MEDS ORDERED: GABA100C PO (10:18)
[2020-01-31] MEDS ORDERED: DIVA-59 PO (10:18)
[2020-01-31] MEDS ORDERED: PROP20TA PO (10:18)
[2020-01-31] MEDS ORDERED: QUET300T PO (10:18)
[2020-01-31] MEDS ORDERED: PLEASE ENTER HEIGHT AND WEIGHT MC SCH (10:30)
[2020-01-31 10:40] VITALS: BP 155/104
[2020-01-31 11:03] VITALS: BP 155/104
[2020-01-31 12:02] LABS: CHOL/HDL RATIO 2.9; FREE T4 (FREE THYROXINE) 0.87 ng/dL (0.76-1.46); LDL/HDL RATIO 1.6 (0.5-3.0)
[2020-01-31] MEDS: GABAPENTIN 100 MG CAPSULE PO SCH ×3 (15:24→20:34)
[2020-01-31] MEDS: DIAZEPAM 10 MG TABLET PO SCH ×3 (16:00→20:34)
[2020-01-31] MEDS: ONDANSETRON ODT 4 MG PO PRN (17:31)
[2020-01-31 19:57] VITALS: BP 135/92
[2020-01-31] MEDS: DIVALPROEX 500 MG TABLET.DR PO SCH (20:33)
[2020-01-31] MEDS: PROPRANOLOL 40 MG TABLET PO SCH (20:34)
[2020-01-31] MEDS: DIVALPROEX 250 MG TABLET.DR PO SCH (20:34)
[2020-01-31] MEDS: QUETIAPINE 200 MG TABLET PO SCH (20:34)
[2020-01-31] MEDS ORDERED: DIVALPROEX 500 MG TABLET.DR PO SCH ×2 (21:00)
[2020-01-31] MEDS ORDERED: QUETIAPINE 200 MG TABLET PO SCH (21:00)
[2020-02-01 06:54] LABS: ANION GAP 6 mmol/L (5-15); CHLORIDE 107 mmol/L (98-107)
[2020-02-01 06:57] LABS: ALANINE AMINOTRANSFERASE 39 U/L (12-78); ALKALINE PHOSPHATASE 87 U/L (45-117); BILIRUBIN,TOTAL 0.8 mg/dL (0.2-1.0); CREATININE 0.84 mg/dL (0.7-1.3); TOTAL PROTEIN 6.8 g/dL (6.4-8.2)
[2020-02-01 07:05] LABS: BASOPHILS # (AUTO) 0.05 x10^3/uL (0-0.1); BASOPHILS % (AUTO) 1 % (0-1); EOSINOPHILS # (AUTO) 0.46 x10^3/uL (0-0.4); EOSINOPHILS % (AUTO) 5 % (1-7); LYMPHOCYTES # (AUTO) 3.91 x10^3/uL (1-3.4); LYMPHOCYTES % (AUTO) 38 % (22-44); MD NO; MEAN CORPUSCULAR HEMOGLOBIN 31.9 pg (27.5-34.5); MEAN CORPUSCULAR HGB CONC 33.2 g/dL (33.2-36.2); MEAN CORPUSCULAR VOLUME 96.1 fL (81-97); MEAN PLATELET VOLUME 8.6 fL (7.4-10.4); MONOCYTES # (AUTO) 0.71 x10^3/uL (0.2-0.8); MONOCYTES % (AUTO) 7 % (2-9); NEUTROPHILS # (AUTO) 5.05 x10^3/uL (1.8-6.8); NEUTROPHILS % (AUTO) 50 % (42-75); PLATELET COUNT 195 x10^3/uL (130-400); RED BLOOD COUNT 4.89 x10^6/uL (4.38-5.82); RED CELL DISTRIBUTION WIDTH 15.1 % (9.4-14.8)
[2020-02-01 07:33] VITALS: BP 121/85
[2020-02-01] MEDS: DIVALPROEX 500 MG TABLET.DR PO SCH ×2 (08:11→20:22)
[2020-02-01] MEDS: DIVALPROEX 250 MG TABLET.DR PO SCH ×2 (08:11→20:22)
[2020-02-01] MEDS: GABAPENTIN 100 MG CAPSULE PO SCH ×3 (08:11→20:22)
[2020-02-01] MEDS: DIAZEPAM 10 MG TABLET PO SCH ×3 (08:11→20:23)
[2020-02-01] MEDS ORDERED: LORazepam 1MG TABLET PO SCH (10:00)
[2020-02-01 19:25] VITALS: BP 130/78
[2020-02-01] MEDS: PROPRANOLOL 40 MG TABLET PO SCH (20:23)
[2020-02-01] MEDS: QUETIAPINE 200 MG TABLET PO SCH (20:23)
[2020-02-02 07:43] VITALS: BP 115/74
[2020-02-02] MEDS: DIAZEPAM 10 MG TABLET PO SCH ×3 (08:38→20:03)
[2020-02-02] MEDS: DIVALPROEX 250 MG TABLET.DR PO SCH ×2 (08:38→20:03)
[2020-02-02] MEDS: GABAPENTIN 100 MG CAPSULE PO SCH ×3 (08:38→20:03)
[2020-02-02] MEDS: DIVALPROEX 500 MG TABLET.DR PO SCH ×2 (08:38→20:03)
[2020-02-02] MEDS: ONDANSETRON ODT 4 MG PO PRN (16:35)
[2020-02-02 19:27] VITALS: BP 130/85
[2020-02-02] MEDS: QUETIAPINE 200 MG TABLET PO SCH (20:03)
[2020-02-02] MEDS: PROPRANOLOL 40 MG TABLET PO SCH (20:04)
[2020-02-03 07:40] VITALS: BP 120/82
[2020-02-03] MEDS: DIVALPROEX 500 MG TABLET.DR PO SCH ×2 (08:51→20:21)
[2020-02-03] MEDS: GABAPENTIN 100 MG CAPSULE PO SCH ×3 (08:52→20:22)
[2020-02-03] MEDS: DIAZEPAM 10 MG TABLET PO SCH (08:52)
[2020-02-03] MEDS: DIVALPROEX 250 MG TABLET.DR PO SCH ×2 (08:52→20:21)
[2020-02-03] MEDS ORDERED: DIAZEPAM 10 MG TABLET PO PRN (13:30)
[2020-02-03 18:34] LABS: MICROSCOPIC NOT IND
[2020-02-03 19:41] VITALS: BP 134/96
[2020-02-03] MEDS: PROPRANOLOL 40 MG TABLET PO SCH (20:21)
[2020-02-03] MEDS: QUETIAPINE 200 MG TABLET PO SCH (20:22)
[2020-02-04 07:45] VITALS: BP 116/78
[2020-02-04] MEDS: DIVALPROEX 500 MG TABLET.DR PO SCH ×2 (08:37→20:53)
[2020-02-04] MEDS: DIVALPROEX 250 MG TABLET.DR PO SCH ×2 (08:37→20:52)
[2020-02-04] MEDS: GABAPENTIN 100 MG CAPSULE PO SCH ×3 (08:37→20:52)
[2020-02-04 19:13] VITALS: BP 148/90
[2020-02-04] MEDS: QUETIAPINE 200 MG TABLET PO SCH (20:52)
[2020-02-04] MEDS: PROPRANOLOL 40 MG TABLET PO SCH (20:53)
[2020-02-05 07:48] VITALS: BP 118/84
[2020-02-05] MEDS: GABAPENTIN 100 MG CAPSULE PO SCH (08:55)
[2020-02-05] MEDS: DIVALPROEX 250 MG TABLET.DR PO SCH (08:55)
[2020-02-05] MEDS: DIVALPROEX 500 MG TABLET.DR PO SCH (08:55)
== END 2020-02-05 09:10 | disposition home or self-care (01) | DRG 885 ==
LOC: 3E 09:31
PROVIDERS: ADMIT Psychiatry & Neurology Psychosomatic Medicine; ATTEND Hospitalist
DX: F25.0 Schizoaffective disorder, bipolar type (principal); R45.851 Suicidal ideations; F15.20 Other stimulant dependence, uncomplicated; F10.10 Alcohol abuse, uncomplicated; K75.89 Other specified inflammatory liver diseases; F17.210 Nicotine dependence, cigarettes, uncomplicated; G89.29 Other chronic pain; K74.60 Unspecified cirrhosis of liver; Z88.5 Allergy status to narcotic agent; Z91.013 Allergy to seafood; Z91.010 Allergy to peanuts; Z88.8 Allergy status to other drugs, medicaments and biological substances; Z90.49 Acquired absence of other specified parts of digestive tract
CPT/HCPCS: 36415; 71045; 80053; 80061; 81003; 82140; 83036; 84439; 84443; 85025; 93005; Q0162

== ENCOUNTER 2020-03-03 12:47 | Emergency (ER) | payer MEDICARE, MEDICAID ==
[~2020-03-03] VITALS: Ht 180.3 cm; Wt 91.5 kg
[~2020-03-03 12:47] MED LIST changes: +DIVA-59 PO; +GABA100C PO; +METF500T17 PO; +QUET300T PO
--- NOTE | 2020-03-03 12:59 | NUR ---
PT STATES HIS 14 YR OLD BROTHER RECENTLY OF COVID. STATES "I JUST WANT TO WITH HIM". PT ADMITS TO ETOH INTAKE TODAY: "1 PINT". DENIES SI PLAN. WANTS CLEARANCE TO GO TO [facility] OR [facility]. PSEUDO SEIZURE-LIKE ACTIVITY X 20 SECONDS DURING TRIAGE: PT ABLE TO MOVE EXTREMETIES, NO POST-ICTAL PERIOD, ABLE TO SPEAK W/OUT DIFFICULTY IMMEDIATELY AFTER EPISODE, RESP EVEN & UNLABORED.
[2020-03-03 13:49] LABS: BASOPHILS # (AUTO) 0.03 x10^3/uL (0-0.1); BASOPHILS % (AUTO) 0 % (0-1); EOSINOPHILS # (AUTO) 0.14 x10^3/uL (0-0.4); EOSINOPHILS % (AUTO) 2 % (1-7); LYMPHOCYTES % (AUTO) 38 % (22-44); MD NO; MEAN CORPUSCULAR HEMOGLOBIN 31.7 pg (27.5-34.5); MEAN CORPUSCULAR HGB CONC 33.8 g/dL (33.2-36.2); MEAN CORPUSCULAR VOLUME 93.8 fL (81-97); MEAN PLATELET VOLUME 7.6 fL (7.4-10.4); MONOCYTES % (AUTO) 7 % (2-9); NEUTROPHILS # (AUTO) 4.01 x10^3/uL (1.8-6.8); NEUTROPHILS % (AUTO) 53 % (42-75); PLATELET COUNT 278 x10^3/uL (130-400); RED BLOOD COUNT 4.95 x10^6/uL (4.38-5.82); RED CELL DISTRIBUTION WIDTH 14.4 % (9.4-14.8)
[2020-03-03] MEDS ORDERED: DIVA-61 PO (13:52)
[2020-03-03] MEDS ORDERED: QUET400T PO (13:52)
[2020-03-03 13:55] VITALS: BP 126/90
--- NOTE | 2020-03-03 13:55 | NUR ---
PERSONAL BELONGINGS BAGGED, WILL BE PLACED IN ED LOCKER. PT'S [address] IN SHORTS POCKET[address] RX BOTTLES PLACED IN BAG.
[2020-03-03 13:57] LABS: ALBUMIN 3.5 g/dL (3.4-5.0); ANION GAP 13 mmol/L (5-15); CALCIUM 8.1 mg/dL (8.5-10.1); CHLORIDE 109 mmol/L (98-107)
[2020-03-03 13:59] LABS: SALICYLATE LEVEL < 1.7 mg/dL (2.8-20.0)
[2020-03-03 14:04] LABS: CREATININE 0.85 mg/dL (0.7-1.3)
--- NOTE | 2020-03-03 14:22 | NUR ---
PT REPORT TO CAMI MATUTE. PT CARE TRANSFERRED. PT MOVED TO ROOM 2
--- NOTE | 2020-03-03 14:28 | NUR ---
REPORT RECEIVED FROM MUKUL ALMANZA.
[2020-03-03 14:38] LABS: AMPHETAMINE SCREEN, URINE Negative (Negative); BARBITURATE SCREEN, URINE Negative (Negative); BENZODIAZEPINE SCREEN, URINE Positive (Negative); CANNABINOID SCREEN, URINE Negative (Negative); COCAINE SCREEN, URINE Negative (Negative); METHADONE SCREEN, URINE Negative (Negative); OPIATE SCREEN, URINE Negative (Negative)
--- NOTE | 2020-03-03 15:07 | NUR ---
INTEGRITY CONSULTANT AT BEDSIDE TO EVALUATE AT THIS TIME.
--- NOTE | 2020-03-03 16:03 | NUR ---
PT SLEEPING IN [facility]. RESPS EVEN AND UNLABORED. SITTER MONITORING FROM HALLWAY FOR SAFETY. ROOM REMAINS SECURE.
--- NOTE | 2020-03-03 16:57 | NUR ---
THIS RN CALLED FOR REPORT BUT RN IS IN BREAK AT THIS TIME. WILL CALL BACK SOON.
--- NOTE | 2020-03-03 17:05 | NUR ---
ICE CHIPS AND ORANGE JUICE PROVIDED PER REQUEST.
--- NOTE | 2020-03-03 17:20 | NUR ---
REPORT GIVEN TO Kortney ALMANZA. ALL QUESTIONS ANSWERED.
== END 2020-03-03 18:57 ==
LOC: ED 16:15
DX: R45.851 Suicidal ideations (principal); F10.120 Alcohol abuse with intoxication, uncomplicated; Y90.9 Presence of alcohol in blood, level not specified; I10 Essential (primary) hypertension; I25.2 Old myocardial infarction; Z86.73 Personal history of transient ischemic attack (TIA), and cerebral infarction without residual deficits
CPT/HCPCS: 36415; 80048; 80164; 80307; 82040; 82140; 85025; 99283

== ENCOUNTER 2020-07-13 07:57 | Emergency (ER) | payer MEDICARE, MEDICAID ==
[~2020-07-13] VITALS: Ht 180.3 cm; Wt 91.0 kg
[~2020-07-13 07:57] MED LIST changes: +DIVA-61 PO; +GABA-826 PO; +METF500T PO; +MULT-449 PO; -PANT20TA3 PO; +PANT20TA4 PO; +QUET100T PO; +QUET400T PO
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
--- NOTE | 2020-07-13 08:16 | NUR ---
EXPECTATIONS AND BOUNDARIES SET W/ PT. EDUCATED THAT PHYSICAL AGGRESSION IS UNACCEPTABLE BEHAVIOR. VERBALIZED UNDERSTANDING, COOPERATIVE DURING REST OF ASSESSMENT.
--- NOTE | 2020-07-13 08:16 | NUR ---
PT PROVIDED W/ URINAL AND EDUCATED ON NEED FOR SAMPLE.
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
--- NOTE | 2020-07-13 08:31 | NUR ---
PT REMINDED NEED FOR URINE SAMPLE, STATES HE HAS TRIED BUT HAS NOT BEEN ABLE TO PRODUCE URINE.
[2020-07-13 08:44] LABS: BASOPHILS % (AUTO) 1 % (0-1); EOSINOPHILS % (AUTO) 5 % (1-7); LYMPHOCYTES % (AUTO) 32 % (22-44); MEAN CORPUSCULAR HEMOGLOBIN 31.4 pg (27.5-34.5); MEAN CORPUSCULAR HGB CONC 34.6 g/dL (33.2-36.2); MEAN PLATELET VOLUME 7.4 fL (7.4-10.4); MONOCYTES % (AUTO) 10 % (2-9); NEUTROPHILS % (AUTO) 53 % (42-75); PLATELET COUNT 211 x10^3/uL (130-400); RED BLOOD COUNT 5.16 x10^6/uL (4.38-5.82); RED CELL DISTRIBUTION WIDTH 14.8 % (9.4-14.8)
[2020-07-13 08:46] LABS: MD NO
[2020-07-13 08:56] LABS: ALANINE AMINOTRANSFERASE 67 U/L (12-78); ALBUMIN 3.4 g/dL (3.4-5.0); ANION GAP 9 mmol/L (5-15); CALCIUM 8.3 mg/dL (8.5-10.1); CHLORIDE 104 mmol/L (98-107); CREATININE 0.99 mg/dL (0.7-1.3)
[2020-07-13 08:58] LABS: ALKALINE PHOSPHATASE 111 U/L (45-117); BILIRUBIN,TOTAL 0.5 mg/dL (0.2-1.0); TOTAL PROTEIN 7.8 g/dL (6.4-8.2)
[2020-07-13 09:01] LABS: SALICYLATE LEVEL < 1.7 mg/dL (2.8-20.0)
--- NOTE | 2020-07-13 09:04 | NUR ---
PT SLEEPING ON GURNEY W/ SIDE RAILS UPX2, GARAGE DOORS DOWN FOR SAFETY. RESP EVEN AND UNLABORED, RENETTA.
--- NOTE | 2020-07-13 09:10 | NUR ---
SITTER AT BEDSIDE FOR SAFETY.
--- NOTE | 2020-07-13 09:17 | NUR ---
PT ATTEMPTED TO USE URINAL W/O SUCCESS.
--- NOTE | 2020-07-13 10:12 | NUR ---
URINE SENT TO LAB
[2020-07-13 10:21] LABS: MICROSCOPIC NOT IND
[2020-07-13 10:34] LABS: AMPHETAMINE SCREEN, URINE Negative (Negative); BARBITURATE SCREEN, URINE Negative (Negative); BENZODIAZEPINE SCREEN, URINE Negative (Negative); CANNABINOID SCREEN, URINE Negative (Negative); COCAINE SCREEN, URINE Negative (Negative); METHADONE SCREEN, URINE Negative (Negative); OPIATE SCREEN, URINE Negative (Negative)
--- NOTE | 2020-07-13 11:03 | NUR ---
DIET TRAY DELIVERED.
--- NOTE | 2020-07-13 12:45 | NUR ---
PT RESTING ON GURNEY WITH EYES CLOSED, RESPONDS APPROP TO STAFF, NAD, COMFORT MEASURES PROVIDED, PT REMAINS IN SAFE ENVIRONMENT, SITTER IN VIEW.
--- NOTE | 2020-07-13 13:45 | NUR ---
PT RESTING ON [employer] W/ CALL LIGHT IN REACH, RESP EVEN AND UNLABORED, RENETTA.
--- NOTE | 2020-07-13 14:20 | NUR ---
LUNCH TRAY DELIVERED.
--- NOTE | 2020-07-13 15:26 | NUR ---
PT RESTING ON GURNEY W/ GARAGE DOORS DOWN AND SITTER OUTSIDE FOR SAFETY. RESP EVEN AND UNLABORED, RENETTA.
[2020-07-13] MEDS ORDERED: PROMETHAZINE 25 MG/ML, 1ML ONE ×2 (15:36→21:04)
--- NOTE | 2020-07-13 15:42 | NUR ---
PT NOW HAS C/O N/V, BODYACHES. PT VOMITTED 200ML. PT STATES HE HAS BEEN DRINKING NON STOP X2 DAYS. DR.VAN WEINER UPDATED. PT MEDICATED PER EMAR. PT PROVIDED W/ NEW EMESIS BAG AND WARM BLANKET, LIGHTS OFF PER PT REQUEST. SITTER OUTSIDE ROOM FOR SAFETY. RESP EVEN AND UNLABORED, NADJesus.
[2020-07-13] MEDS ORDERED: PROMETHAZINE 25 MG/ML, 1ML IM ONE ×2 (16:00→21:30)
--- NOTE | 2020-07-13 16:30 | NUR ---
PT HAS BEEN SLEEPING ON [facility] SINCE CHIEF VENDOR QUALITY. RESP EVEN AND UNLABORED, NADN. SITTER OUTSIDE ROOM AND GARAGE DOORS DOWN FOR SAFETY.
--- NOTE | 2020-07-13 18:57 | NUR ---
REPORT GIVEN TO SAM ALMANZA. PT C/O NAUSEA, WILL UPDATE ERP. PT ACCEPTED TO [facility] ONCE [facility], ED TO EVAL PRIOR TO TRANSFER. RESP EVEN AND UNLABORED, RENETTA.
--- NOTE | 2020-07-13 18:58 | NUR ---
Report received from CAMI Abdullahi. This RN to assume care.
[2020-07-13] MEDS ORDERED: POTASSIUM CHLORIDE 20 MEQ PACKET PO SCH (20:00)
--- NOTE | 2020-07-13 20:15 | NUR ---
Report given to CAMI Skaggs from [facility]. They are to accept patient and take him at 2200.
[2020-07-13] MEDS ORDERED: POTASSIUM CHLORIDE 20 MEQ TAB.ER.PRT ONE (20:22)
[2020-07-13] MEDS ORDERED: ONDANSETRON ODT 8 MG ONE (20:26)
[2020-07-13] MEDS ORDERED: ONDANSETRON ODT 8 MG PO ONE (20:30)
--- NOTE | 2020-07-13 20:30 | NUR ---
CAMI Skaggs at bedside. Patient c/o nausea. Medicated patient per sep.
--- NOTE | 2020-07-13 21:11 | NUR ---
Patient remains nauseous; dry heaving. Medicated patient per mar. Rapid COVID swab collected and walked to lab.
--- NOTE | 2020-07-13 21:44 | NUR ---
Patient COVID result +. [facility] unable to accept COVID+ patients at this time. Throughput advised. No facilities available to accept patient at this time.
--- NOTE | 2020-07-13 21:52 | NUR ---
Patient feeling better after last meds given. Patient informed of COVID+ result. Advised patient he will not be transferred to U. Home meds given to ERP to be ordered as scheduled. Patient has no complaints/needs at this time. Room secured, belongings in locked cabinet, sitter outside.
[2020-07-13] MEDS: QUETIAPINE 100MG TABLET PO SCH (22:00)
[2020-07-13] MEDS: DIVALPROEX 500 MG TABLET.DR PO SCH (22:00)
[2020-07-13] MEDS: metFORMIN 500 MG TABLET PO SCH (22:00)
[2020-07-13] MEDS ORDERED: GABAPENTIN 300 MG CAPSULE PO ONE (22:00)
[2020-07-13] MEDS ORDERED: QUETIAPINE 100MG TABLET ONE (22:04)
[2020-07-13] MEDS ORDERED: DIVALPROEX 500 MG TAB.ER.24H ONE (22:04)
[2020-07-13] MEDS ORDERED: metFORMIN 500 MG TABLET ONE (22:04)
--- NOTE | 2020-07-13 22:06 | NUR ---
Meds requested. Hospital bed requested.
--- NOTE | 2020-07-13 22:18 | NUR ---
TP RN: PT. UNABLE TO TO GO OUR U UNIT COVID TEST CAME BACK +. CALLED TO [facility]-THEY DON'T CURRENTLY ACCEPT COVID + PATIENTS. [facility] STATES THEY DO TAKE COIVD + BUT THEIR UNIT IS FULL AT THIS TIME. PACKET WAS STILL FAXED TO ALL FACILITIES.
[2020-07-13] MEDS ORDERED: GABAPENTIN 100 MG CAPSULE PO ONE (22:30)
--- NOTE | 2020-07-13 22:35 | NUR ---
Medicated patient per sep. Transferred patient to hospital bed.
--- NOTE | 2020-07-13 23:29 | NUR ---
Patient sleeping in hospital bed. Respirations even and unlabored. Room secured, belongings in locked cabinet. Sitter outside.
--- NOTE | 2020-07-14 00:23 | NUR ---
Patient sleeping in hospital bed. Respirations even and unlabored. Room secured, belongings in locked cabinet. Sitter outside.
--- NOTE | 2020-07-14 01:10 | NUR ---
RECEIVED REPORT FROM CAMI HINES TO ASSUME CARE OF PT. AT THIS TIME. PT. CURRENTLY RESTING ON HOSPITAL BED WITH EYES CLOSED. EVEN, NON-LABORED RESPIRATIONS VISIBLE. NO DISTRESS NOTED. ALL SAFETY MEASURES OBSERVED. ROOM SECURED AND SITTER IN [place].
--- NOTE | 2020-07-14 01:11 | NUR ---
Patient sleeping in hospital bed. Respirations even and unlabored. Room secured, belongings in locked cabinet. Sitter outside.
--- NOTE | 2020-07-14 01:11 | NUR ---
Report to CAMI Joshi. Patient care transferred.
--- NOTE | 2020-07-14 02:26 | NUR ---
PT. PROVIDED WITH CRACKERS AND DIET SPRITE(SI SAFE). PT. DENIES ANY FURTHER NEEDS AT THIS TIME. ROOM REAMAINS SECURED. SITTER REMAINS IN VIEW.
--- NOTE | 2020-07-14 03:57 | NUR ---
PT. RESTING ON BED WITH EYES CLOSED. RESPIRATIONS EVEN, NON-LABORED. ROOM REMAINS SECURED. SITTER IN VIEW.
--- NOTE | 2020-07-14 05:13 | NUR ---
PT. CONTINURES RESTING ON BED WITH EYES CLOSED. NO DISTRESS NOTED. RESPIRATIONS VISIBLE AND NON-LABORED.
[2020-07-14] MEDS: PROPRANOLOL 20 MG TABLET PO SCH ×2 (06:05→17:14)
--- NOTE | 2020-07-14 07:06 | NUR ---
REPORT FROM CAMI WICK. PT RESTING COMFORTABLY IN BED NAD NOTED AT THIS TIME. SITTER OUTSIDE OF ROOM FOR DIRECT OBSERVATION AND Q15 MIN SAFETY CHECKS. AWAITING BREAKFAST TRAY. MEDICATION REQUEST SENT TO PHARMACY.
[2020-07-14] MEDS ORDERED: metFORMIN 500 MG TABLET ONE ×2 (07:51→17:08)
[2020-07-14] MEDS ORDERED: DIVALPROEX 500 MG TABLET.DR ONE (07:51)
--- NOTE | 2020-07-14 08:10 | NUR ---
PT LAYING IN BED, RESPIRATIONS EVEN AND UNLABORED ON RA. NAD NOTED AT THIS TIME. AWAITING BREAKFAST TRAY. SITTER OUTSIDE OF ROOM FOR DIRECT OBSERVATION AND Q15 MIN SAFETY CHECKS.
[2020-07-14] MEDS: MULTIVITAMIN 1 TABLET PO SCH (09:20)
[2020-07-14] MEDS: DIVALPROEX 500 MG TABLET.DR PO SCH ×2 (09:20→20:24)
[2020-07-14] MEDS: metFORMIN 500 MG TABLET PO SCH ×2 (09:20→17:14)
--- NOTE | 2020-07-14 09:26 | NUR ---
PT MEDICATED PER EMAR. BREAKFAST GIVEN. PT SITTING UP IN BED, NAD NOTED. TURNS TELEVISION ON. SITTER OUTSIDE OF ROOM FOR DIRECT OBSERVATION AND Q15 MIN SAFETY CHECKS.
--- NOTE | 2020-07-14 10:32 | NUR ---
PT RESTING WITH EYES CLOSED IN BED. NAD NOTED AT THIS TIME. RESPIRATIONS EVEN AND UNLABORED ON RA. SITTER OUTSIDE OF ROOM FOR DIRECT OBSERVATION AND Q15 MIN SAFETY CHECKS.
[2020-07-14] MEDS ORDERED: PROMETHAZINE 25 MG/ML, 1ML ONE (11:11)
--- NOTE | 2020-07-14 11:21 | NUR ---
PT MEDICATED PER EMAR AFTER C/O NAUSEA. PT ANXIOUS ABOUT COVID DX. RN DISCUSSED WITH PT DRINKING FLUIDS AND REASSURING PT. PT PLEASANT WITH STAFF. NAD NOTED AT THIS TIME. RESPIRATIONS EVEN AND UNLABORED ON RA. SITTER OUTSIDE OF ROOM FOR DIRECT OBSERVATION AND Q15 MIN SAFETY CHECKS.
[2020-07-14] MEDS ORDERED: PROMETHAZINE 25 MG/ML, 1ML IM ONE (11:30)
--- NOTE | 2020-07-14 11:43 | NUR ---
KYLEE KUO ASSESSING PT VIA [employer] PHONE AT THIS TIME.
--- NOTE | 2020-07-14 12:02 | NUR ---
PT GIVEN MEAL TRAY. SITS UP, HOB TO POSITION OF COMFORT. NAD NOTED AT THIS TIME. SITTER OUTSIDE OF ROOM FOR DIRECT OBSERVATION AND Q15 MIN SAFETY CHECKS.
--- NOTE | 2020-07-14 13:02 | NUR ---
PT RECLINED IN BED WATCHING TELEVISION. NAD NOTED AT THIS TIME. RESPIRAITONS EVEN AND UNLABORED ON RA. SITTER OUTSIDE OF ROOM FOR DIRECT OBSERVATIONS AND Q15 MIN SAFETY CHECKS.
--- NOTE | 2020-07-14 14:08 | NUR ---
PT RESTING WITH EYES CLOSED. RESPIRATIONS EVEN AND UNLABORED ON RA. NAD NOTED AT THIS TIME. SITTER IS OUTSIDE OF ROOM FOR DIRECT OBSERVATION AND Q15 MIN SAFETY CHECKS.
--- NOTE | 2020-07-14 15:16 | NUR ---
PT RESTING ASLEEP IN BED. NAD NOTED AT THIS TIME. RESPIRATIONS EVEN AND UNLABORED ON RA. SITTER OUTSIDE OF ROOM FOR DIRECT OBSERVATION AND Q15 MIN SAFETY CHECKS.
--- NOTE | 2020-07-14 16:15 | NUR ---
PT RESTING IN BED. GETS UP TO USE BATHROOM PERIODICALLY. PT REPORTS LOOSE STOOLS.
--- NOTE | 2020-07-14 16:20 | NUR ---
REPORT TO CAMI CHEN.
--- NOTE | 2020-07-14 17:32 | NUR ---
PT GIVEN DINNER. NAD NOTED AT THIS TIME. VERY HUNGRY. SITTER OUTSIDE OF ROOM FOR OBSERVATION AND Q15 MIN SAFETY CHECKS.
--- NOTE | 2020-07-14 18:12 | NUR ---
PT ASLEEP IN BED. NAD NOTED AT THIS TIME. RESPIRATIONS EVEN AND UNLABORED ON RA.
--- NOTE | 2020-07-14 18:16 | NUR ---
Surekha rojas in ED - 07/14/20 at 1816 by WATSON Patient/Caregiver given discharge instructions and they have confirmed that they understand the instructions. Patient ambulatory with steady gait.
--- NOTE | 2020-07-14 18:59 | NUR ---
REPORT TO CAMI MEZA. PT C/O BODY ACHES. DR MORA NOTIFIED AND ORDERING PO MEDS FOR PT.
[2020-07-14] MEDS ORDERED: ACETAMINOPHEN 325 MG TABLET PO ONE (19:00)
[2020-07-14] MEDS ORDERED: ACETAMINOPHEN 325 MG TABLET ONE (19:18)
[2020-07-14] MEDS ORDERED: QUETIAPINE 100MG TABLET ONE (20:18)
[2020-07-14] MEDS ORDERED: DIVALPROEX 500 MG TAB.ER.24H ONE (20:18)
[2020-07-14] MEDS: QUETIAPINE 100MG TABLET PO SCH (20:24)
--- NOTE | 2020-07-14 22:02 | NUR ---
PT SLEEPING IN BED, PT IN SI SECURE ROOM WITH ITTER AT PT DOOR. PT HAS NO CURRENT WANTS OR NEEDS AT THIS TIME.
--- NOTE | 2020-07-15 00:14 | NUR ---
PT SLEEPING IN BED, PT IN SI SECURE ROOM WITH ITTER AT PT DOOR. PT HAS NO CURRENT WANTS OR NEEDS AT THIS TIME.
--- NOTE | 2020-07-15 01:29 | NUR ---
PT SLEEPING IN BED, PT IN SI SECURE ROOM WITH ITTER AT PT DOOR. PT HAS NO CURRENT WANTS OR NEEDS AT THIS TIME.
--- NOTE | 2020-07-15 03:15 | NUR ---
PT SLEEPING IN BED, PT IN SI SECURE ROOM WITH ITTER AT PT DOOR. PT HAS NO CURRENT WANTS OR NEEDS AT THIS TIME.
--- NOTE | 2020-07-15 04:05 | NUR ---
Break RN: patient sleeping in hospital bed. Respirations even and unlabored. Room secure, belongings locked in cabinet, sitter outside.
[2020-07-15] MEDS: PROPRANOLOL 20 MG TABLET PO SCH ×2 (06:00→18:13)
--- NOTE | 2020-07-15 07:00 | NUR ---
SBAR RPT REC'D, ASSUMED PT CARE. PT IN HOSPITAL BED, SLEEPING, RESP EVEN NON-LABORED. SITTER AT DOORWAY WITH PT IN VIEW, ROOM SECURED.
--- NOTE | 2020-07-15 08:22 | NUR ---
PT ASSESSMENT NOTED, VSS. PT STATES HE THOUGHT ABOUT WANTING TO BE DURING THE NIGHT BUT STATES THAT HIS SEROQUEL HELPED HIM TO FEEL BETTER. PT DENIES ANY PLAN OR CURRENT THOUGHTS THIS MORNING. POC DISCUSSED AND QUESTIONS ANSWERED. CALL LIGHT W/I REACH. INTRODUCED PT TO SHERI JOINER, WHO WILL BE MONITORING HIM TODAY.
[2020-07-15] MEDS ORDERED: DIVALPROEX 500 MG TABLET.DR ONE ×2 (08:31→20:18)
[2020-07-15] MEDS ORDERED: ACETAMINOPHEN 325 MG TABLET ONE (08:31)
[2020-07-15] MEDS ORDERED: metFORMIN 500 MG TABLET ONE ×2 (08:31→18:14)
[2020-07-15] MEDS: metFORMIN 500 MG TABLET PO SCH ×2 (08:39→18:13)
[2020-07-15] MEDS: DIVALPROEX 500 MG TABLET.DR PO SCH ×2 (08:40→20:19)
--- NOTE | 2020-07-15 08:46 | NUR ---
PT MED NOTED, BREAKFAST TRAY PROVIDED AND SET UP FOR PT. ROOM SECURE, SITTER AT DOORWAY
[2020-07-15] MEDS ORDERED: ACETAMINOPHEN 325 MG TABLET PO ONE (09:00)
[2020-07-15] MEDS: MULTIVITAMIN 1 TABLET PO SCH (09:12)
--- NOTE | 2020-07-15 09:30 | NUR ---
PT CONSUMED 100% OF BREAKFAST. POC, BEHAVIOUR EXPECTATIONS AND BOUNDARIES DISCUSSED.
--- NOTE | 2020-07-15 10:47 | NUR ---
PT AMBULATORY TO SHOWER ROOM WITH RN ESCORT. PT WEARING MASK. PT VERBALIZES UNDERSTANDING THAT HE HAS 15MIN TO SHOWER. SHERI GTZ AT DOOR FOR SAFETY
--- NOTE | 2020-07-15 11:10 | NUR ---
PT COMPLETED SHOWER INDEPENDENTLY, REFUSED ORAL CARE PRODUCTS. PT RTD TO ROOM W/O INCIDENT, SITTER REMAINS AT DOORWAY WITH PT IN VIEW. CALL LIGHT W/I REACH
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
[2020-07-15] MEDS ORDERED: QUETIAPINE 100MG TABLET ONE (20:12)
[2020-07-15] MEDS ORDERED: DIVALPROEX 500 MG TAB.ER.24H ONE (20:12)
[2020-07-15] MEDS: QUETIAPINE 100MG TABLET PO SCH (20:16)
--- NOTE | 2020-07-15 20:36 | NUR ---
PT ALERT, ORIENTED IN BED. VSS. PT STATES HE HAS NO SI AT THIS TIME. HE DID EARLIER TODAY WHEN HE FOUND OUT HE WAS POSITIVE FOR COVID. STATING "I DON'T WANT TO GIVE PEOPLE THE VIRUS OR MY GRANDFATHER. HE IS 85 AND IF THEY KICK ME OUT TO LIVE WITH HIM, HE WILL GET IT" PT STATES THAT IS HIS BIGGEST CONCERN. RN INFORMED PT THAT HE IS NOT LEAVING TONIGHT AND WE CAN DISCUSS DISCHARGE PLANS WITH OFFICE RECEPTIONIST TOMORROW. PT CALMED BY THIS. WCTM.
--- NOTE | 2020-07-16 01:06 | NUR ---
PT SLEEPING. EQUAL RISE AND FALL OF THE CHEST. SITTER AT BEDSIDE. WCTM.
--- NOTE | 2020-07-16 01:21 | NUR ---
TASK RN: PT RESTING ON HOSPITAL BED NADN RESP EVEN AND UNLABORED
--- NOTE | 2020-07-16 02:55 | NUR ---
PT SLEEPING IN BED. EQUAL RISE AND FALL OF CHEST. SITTER AT BEDSIDE.WCTM.
[2020-07-16] MEDS: PROPRANOLOL 20 MG TABLET PO SCH (06:00)
--- NOTE | 2020-07-16 07:00 | NUR ---
RECVD REPORT FROM VIET ALMANZA. DISCUSSED PLAN OF CARE.
--- NOTE | 2020-07-16 07:47 | NUR ---
PATIENT RESTING COMFORTABLY. VITALS UPDATED, BREAKFAST TRAY ORDERED. SI RE-ASSESSMENT DONE. PT DENIES HEARING VOICES OR ANY HALLUCINATIONS. SITTER OUTSIDE DOOR. NO FAMILY AT BEDSIDE. PT WILL BE RE-ASSESSED BY PROVIDER THIS MORNING.
[2020-07-16] MEDS: metFORMIN 500 MG TABLET PO SCH (08:00)
[2020-07-16] MEDS ORDERED: metFORMIN 500 MG TABLET ONE ×2 (08:31→09:49)
[2020-07-16] MEDS ORDERED: DIVALPROEX 500 MG TABLET.DR ONE ×2 (08:32→09:45)
[2020-07-16] MEDS: DIVALPROEX 500 MG TABLET.DR PO SCH (09:00)
[2020-07-16] MEDS: MULTIVITAMIN 1 TABLET PO SCH (09:00)
--- NOTE | 2020-07-16 09:17 | NUR ---
Note maryvan in EDM - 07/16/20 at 0931 by [email or web address] Patient given discharge instructions and they have confirmed that they understand the instructions. Patient ambulatory with steady gait. Patient d/c with cab voucher to [facility]. Patient also stated he had a physician to follow up with when he got home.
--- NOTE | 2020-07-16 09:56 | NUR ---
MEDICATED PATIENT PER EMAR. PATIENT RESTING COMFORTABLY IN HOSPITAL BED WITH SITTER OUTSIDE DOOR. PT STATES HE IS STILL HUNGRY. WILL PROVIDE CRACKERS AND JUICE. CALL LIGHT WITHIN REACH. EMPTIED URINAL
--- NOTE | 2020-07-16 11:06 | NUR ---
PATIENT RESTING COMFORTABLY IN HOSPITAL BED WATCHING TV. GARAGE DOORS DOWN FOR SAFETY AND SITTER OUTSIDE DOOR. CALL LIGHT WITHIN REACH. NO ADDITIONAL NEEDS VERBALIZED AT THIS TIME.
--- NOTE | 2020-07-16 12:23 | NUR ---
PROVIDED SAFETY LUNCH TRAY. PATIENT RESTING COMFORTABLY IN HOSPITAL BED WATCHING TV. SITTER OUTSIDE DOOR FOR SAFETY. NO ADDITIONAL NEEDS VERBALIZED AT THIS TIME
--- NOTE | 2020-07-16 13:06 | NUR ---
PROVIDER CHARLIE DID FACETIME EVALUATION AND DISCUSSED PLAN OF CARE WITH THE PATIENT. CHARLIE AND SONIA FROM [employer] ARE WORKING ON PLACEMENT AT THE [facility] SO THE PATIENT CAN BE DISCHARGED. THE PATIENT VERIFIED ALL HIS BELONGINGS INCLUDING HIS DENTURES, WALLET, AND CLOTHES ARE ACCOUNTED FOR IN BELONGING BAGS. WILL RETURN THEM WHEN PATIENT IS OFFICIALLY DISCHARGED. PATIENT IS RESTING COMFORTABLY IN A HOSPITAL BED AWAITING DISCHARGE. NO ADDITIONAL NEEDS VERBALIZED AT THIS TIME.
--- NOTE | 2020-07-16 13:50 | NUR ---
BREAK RN: PT UPRIGHT ON GURNEY WITH EYES CLOSED WITH TV ON, NO NEEDS AT THIS TIME, NAD WITH EQUAL CHEST RISE/FALL, PT REMAINS IN SAFE ENVIRONMENT, SITTER IN VIEW.
--- NOTE | 2020-07-16 14:48 | NUR ---
EMPTIED PT'S URINAL, PATIENT RESTING COMFORTABLY AWAITING DISCHARGE. TV ON AND SITTER WITHIN VIEW. CALL LIGHT WITHIN REACH. NO ADDITIONAL NEEDS AT THIS TIME.
--- NOTE | 2020-07-16 16:30 | NUR ---
2 BAGS OF BELONGINGS INCLUDING THE PATIENTS CLOTHES WERE RETURNED TO THE PT. [facility] WILL BE HERE SHORTLY TO TRANSPORT THE [facility]. HE HAS PRESCRIPTIONS TO FILL BUT I WAS ADVISED BY SONIA IN [employer] THAT THE [facility] IS AWARE AND WILL ASSIST THE PT IN GETTING THEM FILLED. THE PT IS RESTING COMFORTABLY AWAITING D/C. NO SI COMPLAINTS AT THIS TIME. HE SPOKE WITH HIS FAMILY AND STATED THEY WANT HIM TO COME HOME WHEN HIS COVID IS CLEARED. SWEATSHIRT AND MEAL TRAY PROVIDED TO THE PATIENT.
[2020-07-16 16:34] VITALS: BP 131/93
== END 2020-07-16 18:04 | disposition home or self-care (01) ==
LOC: ED 08:17
DX: U07.1 COVID-19 (principal); F32.9 Major depressive disorder, single episode, unspecified; R45.851 Suicidal ideations; E87.6 Hypokalemia; R11.0 Nausea; Z86.73 Personal history of transient ischemic attack (TIA), and cerebral infarction without residual deficits; I10 Essential (primary) hypertension; I25.2 Old myocardial infarction; Z90.89 Acquired absence of other organs
CPT/HCPCS: 36415; 80053; 80299; 80307; 80320; 80329; 81003; 82962; 85025; 87635; 96372; 99285; J2550; Q0162; G0480